=== PATIENT | female | born 1945 ===

== ENCOUNTER 2020-02-25 16:04 | Observation (INO) ==
[2020-02-25 16:29] LABS: ABG Base Excess -2 mEq/L (-2 to 3); ABG HCO3 22 mEq/L (21-27); ABG Oxygen Saturation 95 % (95-98); ABG PCO2 33 mmHg (35-45); ABG PH 7.43 pH Units (7.32-7.45); ABG PO2 72 mmHg (85-104); ABG TCO2 23 mEq/L (20-26)
[2020-02-25 16:47] LABS: Hematocrit 39.8 % (35.3-44.9); Hemoglobin 8.3 g/dL (11.5-15.4); Immature Platelets 5.8 % (1.1-6.1); Mean Corpuscular HGB Conc 20.9 g/dL (31.6-35.5); Mean Corpuscular Hemoglobin 23.4 pg (28.0-33.3); Mean Corpuscular Volume 112.1 fL (83.0-100.0); Mean Platelet Volume 10.1 fL (9.4-12.4); Platelet Count 109 K/mcL (140-400); Red Blood Count 3.55 M/mcL (3.82-4.97)
[2020-02-25 16:54] LABS: INR 1.1; Prothrombin Time 12.7 Seconds (9.4-12.1)
[2020-02-25 16:57] LABS: Activated Partial Thrombo Time 28.4 Seconds (26.0-36.0)
[2020-02-25 16:58] LABS: Albumin 4.4 g/dL (3.5-5.7); Albumin/Globulin Ratio 1.5 (1.1-2.2); Bilirubin,Direct 0.2 mg/dL (0.0-0.2); Bilirubin,Indirect 0.7 mg/dL (0.0-1.0); Bilirubin,Total 0.9 mg/dL (0.3-1.0); Calcium 11.4 mg/dL (8.6-10.3); Potassium 5.9 mEq/L (3.5-5.1); Total Protein 7.4 g/dL (6.4-8.9)
[2020-02-25 17:06] LABS: Troponin I 0.08 ng/mL (< 0.04)
[2020-02-25] MEDS ORDERED: cefTRIAXone 1,000 MG in 0.9 % Sodium Chloride Mini Bag 100 ML IVPB ONE (17:07)
[2020-02-25] MEDS ORDERED: Azithromycin 500 MG in 0.9 % Sodium Chloride 250 ML IVPB ONE (17:07)
[2020-02-25 17:30] LABS: White Blood Count > 440.0 K/mcL (4.3-11.1)
[2020-02-25 17:34] LABS: Lymphocytes # 422.4 K/mcL (0.6-4.6); Monocytes # 4.4 K/mcL (0.0-1.3); Neutrophils # 4.4 K/mcL (1.6-8.9); Reactive Lymphocytes Present (Not Present); Smudge Cells Present (Not Present)
[2020-02-25 17:35] LABS: Hypochromasia Present (Not Present); Macrocytosis Present (Not Present)
[2020-02-25 17:36] LABS: Platelet Estimate Decreased (Normal)
[2020-02-25 17:40] LABS: Adenovirus Not Detected (Not Detect); Coronavirus 229E Not Detected (Not Detect); Coronavirus HKU1 Not Detected (Not Detect); Coronavirus NL63 Not Detected (Not Detect); Coronavirus OC43 Not Detected (Not Detect)
[2020-02-25 17:41] LABS: Bordetella Pertussis Not Detected (Not Detect); Chlamydophila pneumoniae Not Detected (Not Detect); Human Metapneumovirus Not Detected (Not Detect); Human Rhinovirus/Enterovirus Not Detected (Not Detect); Influenza A Subtype 2009 H1 Not Detected (Not Detect); Influenza B Not Detected (Not Detect); Mycoplasma pneumoniae Not Detected (Not Detect); Parainfluenza Virus 1 Not Detected (Not Detect); Parainfluenza Virus 2 Not Detected (Not Detect); Parainfluenza Virus 3 Not Detected (Not Detect); Parainfluenza Virus 4 Not Detected (Not Detect); Respiratory Syncytial Virus Not Detected (Not Detect); SARS-CoV-2 DETECTED (Not Detect)
[2020-02-25] MEDS ORDERED: *HR* Heparin 5,000 UNIT/ML VIAL IVP PRN ×2 (17:42)
[2020-02-25] MEDS ORDERED: *HR* Heparin 5,000 UNIT/ML VIAL IVP ONE (17:42)
[2020-02-25] MEDS ORDERED: Heparin 25,000UNIT/250ML 1/2NS 25,000 UNIT/250 ML IV.SOLN IVC SCH (17:45)
[2020-02-25] MEDS ORDERED: Acetaminophen 325 MG TABLET PO PRN (18:00)
[2020-02-25] MEDS ORDERED: Ondansetron 4 MG/2 ML VIAL IVP PRN (18:00)
[2020-02-25] MEDS ORDERED: Aspirin 325 MG TABLET PO ONE (18:04)
[2020-02-25] MEDS ORDERED: Insulin Human Regular 10 UNIT in 0.9 % Sodium Chloride 10 ML IV ONE (18:09)
[2020-02-25] MEDS ORDERED: *HR* Dextrose 50 % in Water (Vial) 50 ML VIAL IVP ONE (18:10)
[2020-02-25] MEDS ORDERED: 0.9 % Sodium Chloride 1,000 ML IVC ONE (18:16)
[2020-02-25] MEDS: Cefepime HCl 2,000 MG in Water for inj. (sterile) 20 ML IVP SCH (20:04)
[2020-02-25] MEDS: Dexamethasone 4 MG/ML VIAL IVP SCH (21:33)
[2020-02-25 21:56] LABS: Calcium 10.5 mg/dL (8.6-10.3); Potassium 5.1 mEq/L (3.5-5.1)
[2020-02-25] MEDS ORDERED: *HR* Heparin 5,000 UNIT/ML VIAL SQ SCH (22:00)
[2020-02-26 02:48] LABS: Hemoglobin 6.9 g/dL (11.5-15.4); Nucleated Red Blood Cells 0.1 /100 WBC (0)
[2020-02-26 02:50] LABS: Hematocrit 33.2 % (35.3-44.9); Immature Platelets 7.9 % (1.1-6.1); Mean Corpuscular HGB Conc 20.8 g/dL (31.6-35.5); Mean Corpuscular Hemoglobin 23.2 pg (28.0-33.3); Mean Corpuscular Volume 111.8 fL (83.0-100.0); Mean Platelet Volume 10.1 fL (9.4-12.4); Red Blood Count 2.97 M/mcL (3.82-4.97)
[2020-02-26 03:08] LABS: Platelet Count 93 K/mcL (140-400)
[2020-02-26 03:11] LABS: White Blood Count > 440.0 K/mcL (4.3-11.1)
[2020-02-26 03:12] LABS: Platelet Estimate Decreased (Normal); Reactive Lymphocytes Present (Not Present)
[2020-02-26 03:13] LABS: Lymphocytes # 431.2 K/mcL (0.6-4.6); Monocytes # 8.8 K/mcL (0.0-1.3); Smudge Cells Present (Not Present)
[2020-02-26 04:37] LABS: Calcium 9.9 mg/dL (8.6-10.3); Potassium 6.6 mEq/L (3.5-5.1)
[2020-02-26] MEDS ORDERED: 0.9 % Sodium Chloride 250 ML ONE (06:01)
[2020-02-26] MEDS ORDERED: *HR* Dextrose 50 % in Water (Vial) 50 ML VIAL IVP ONE ×2 (08:18→18:03)
[2020-02-26] MEDS ORDERED: Insulin Human Regular 10 UNIT in 0.9 % Sodium Chloride 10 ML IV ONE ×2 (08:18→18:03)
[2020-02-26] MEDS: Calcium Gluconate 1gm/50mL 1 GM/50 ML BAG IVPB SCH ×2 (08:53→10:58)
[2020-02-26] MEDS: Dexamethasone 4 MG/ML VIAL IVP SCH (08:54)
[2020-02-26] MEDS ORDERED: SODIUM ZIRCONIUM CYCLOSILICATE 5 GM POWD.PACK PO SCH (09:00)
[2020-02-26] MEDS ORDERED: Aspirin 81 MG TAB.CHEW PO SCH (09:00)
[2020-02-26] MEDS ORDERED: Azithromycin 500 MG in 0.9 % Sodium Chloride 250 ML IVPB SCH (09:00)
[2020-02-26 13:07] LABS: Phosphorous 5.8 mg/dL (2.7-4.5)
[2020-02-26] MEDS ORDERED: RASBURICASE IVPB ONE (13:27)
[2020-02-26] MEDS ORDERED: SODIUM CHLORIDE 0.9% IVPB ONE (13:27)
[2020-02-26] MEDS ORDERED: FentaNYL (PF) 1,000 MCG/100 ML IV.SOLN IVC SCH (15:00)
[2020-02-26 16:45] LABS: ABG Base Excess -5 mEq/L (-2 to 3); ABG HCO3 22 mEq/L (21-27); ABG Oxygen Saturation 91 % (95-98); ABG PCO2 48 mmHg (35-45); ABG PH 7.27 pH Units (7.32-7.45); ABG PO2 69 mmHg (85-104); ABG TCO2 23 mEq/L (20-26); Blood Gas Modality ASSIST CONTROL; Blood Gas VT 480 cc
[2020-02-26] MEDS ORDERED: *HR* Rocuronium Bromide 50 MG/5 ML VIAL IVP STA (17:16)
[2020-02-26] MEDS ORDERED: *HR* Rocuronium Bromide 50 MG/5 ML VIAL IVP ONE (17:20)
[2020-02-26] MEDS ORDERED: Cisatracurium 200 MG in 0.9 % Sodium Chloride 180 ML IVC SCH (17:30)
[2020-02-26] MEDS ORDERED: Norepinephrine 4 MG/254 ML IV.SOLN IVC SCH (17:45)
[2020-02-26] MEDS ORDERED: 0.9 % Sodium Chloride 1,000 ML ONE (17:50)
[2020-02-26 17:59] LABS: Calcium 10.8 mg/dL (8.6-10.3); Potassium 6.5 mEq/L (3.5-5.1)
[2020-02-26] MEDS: Cefepime HCl 2,000 MG in Water for inj. (sterile) 20 ML IVP SCH (18:29)
[2020-02-26 20:03] VITALS: BP 130/47
[2020-02-26] MEDS ORDERED: Calcium Gluconate 1gm/50mL 1 GM/50 ML BAG IVPB SCH (21:00)
[2020-02-26 21:22] LABS: ABG Base Excess -5 mEq/L (-2 to 3); ABG HCO3 23 mEq/L (21-27); ABG Oxygen Saturation 92 % (95-98); ABG PCO2 60 mmHg (35-45); ABG PO2 80 mmHg (85-104); ABG TCO2 25 mEq/L (20-26); Blood Gas Modality ASSIST CONTROL; Blood Gas VT 400 cc
[2020-02-26] MEDS ORDERED: *HR* Etomidate 20 MG/10 ML AMPUL IVP ONE (21:24)
[2020-02-26] MEDS ORDERED: *HR* Rocuronium Bromide 100 MG/10 ML VIAL IVP ONE (21:24)
== END 2020-02-26 21:25 | disposition short-term general hospital (02) ==
LOC: 2NENU 16:04 → EMEROOARM 16:04 → 2NENU 20:52
PROVIDERS: ADMIT Internal Medicine; ATTEND Internal Medicine